=== PATIENT | male | born 1945 | race Caucasian/White ===

== ENCOUNTER → 2016-09-04 | Outpatient (CLI) | payer BC ==
[~2016-09-04] MED LIST: ADVIN25050 INH; AMLO-110 PO; ASPI-435 PO; ATOR-24 PO; CHOL100010 PO; DXY100 PO; ESCI1TAB10 PO; EZET10TA63 PO; GLC500 PO; GLIP10TA3 PO; LEVO175T3 PO; LOSA50TA54 PO; LTHSR/300 PO; LXP/10 PO; METO25TA3 PO; MULT-506 PO; OMEG10007 PO; SILD100T PO; SPRIN INH; TRAZ50TA35 PO; [UNRECOGNIZED DRUG - CODE] PO
[2016-09-04 14:55] LABS: ESTIMATED AVERAGE GLUCOSE 146 mg/dl; HA1C FLAG Normal (Normal)
[2016-09-04 15:13] LABS: ALB/GLOB RATIO 1.4 (0.9-2); ALKALINE PHOSPHATASE 106 U/L (45-117); AST/SGOT 27 U/L (15-37); BLOOD UREA NITROGEN 26 mg/dl (7-18); BUN/CREATININE RATIO 26.6 (10-20); CALCIUM 9.4 mg/dl (8.5-10.1); CARBON DIOXIDE 27 mmol/L (21-32); CHLORIDE 107 mmol/L (98-107); CREATININE 0.98 mg/dl (0.60-1.40); GLUCOSE 140 mg/dl (70-99); HDL CHOLESTEROL 32 mg/dl; POTASSIUM 4.1 mmol/L (3.5-5.1); SODIUM 139 mmol/L (136-145)
[2016-09-04 15:33] LABS: RATIO 37.4 mcg/mg (0-30.0)
[2016-09-04 15:47] LABS: ALT/SGPT 44 U/L (12-78); CHOLESTEROL 111 mg/dl (0-200); CHOLESTEROL/HDL RATIO 3.5; LDL CHOLESTEROL CALCULATED 37 mg/dl; THYROID STIMULATING HORMONE 0.711 uIu/ml (0.300-4.500); TRIGLYCERIDES 210 mg/dl (0-150); VERY LOW DENSITY LIPOPROT CALC 42 mg/dl
== END | disposition home or self-care (01) ==
LOC: C.LABBC 10:17
PROVIDERS: ATTEND Family Medicine
DX: Z11.59 Encounter for screening for other viral diseases (principal); I10 Essential (primary) hypertension; E11.9 Type 2 diabetes mellitus without complications; E03.9 Hypothyroidism, unspecified

== ENCOUNTER → 2016-10-09 | Day surgery (SDC) | payer BC ==
[2016-10-02 09:10] VITALS: Ht 174 cm; Wt 113.6 kg
[~2016-10-09] VITALS: Ht 174 cm; Wt 113.6 kg
[~2016-10-09] MED LIST changes: -ADVIN25050 INH; -DXY100 PO; -ESCI1TAB10 PO; +LIDOCAINE HCL 2% 2 ML VIAL (20MG/ML) ONE; +PROPOFOL IV EMULSION 10 MG/ML 20 ML VIAL IV ONE; +SODIUM CHLORIDE 0.9% 500ML 500 ML IV ONE; -SPRIN INH; -TRAZ50TA35 PO
--- NOTE | 2016-10-09 09:45 | Endo History and Physical ---
History & Physical Date of Service: October 09, 2016. Chief Complaint: dysphagia Referring Physician: Dr. Hoda Rasmussen History of Present Illness 70 yo CM who presents for EGD secondary to dysphagia. Past Medical History Diabetes, Other Psy. Disorders, Arthritis, Hypertension Past Surgical History Hx Cardiac Surgery: No Hx Internal Defibrillator: No Hx Pacemaker: No Hx Abdominal Surgery: No Hx of Implantable Prosthesis: No Hx Post-Op Nausea and Vomiting: No Hx Cancer Surgery: No Hx Thoracic Surgery: No Hx Orthopedic: No Hx Urinary Tract Surgery: No Family History None Social History Smoking Status: Former Smoker Hx Substance Use: No Hx Alcohol Use: Yes (4-5 BEERS/WEEK) Allergies Coded Allergies: Lisinopril (Verified Allergy, Severe, COUGH, 10/09/16) Current Medications Reported Home Medications Medications Dose Route/Sig Max Daily Dose Days Date Category Vitamin D (Cholecalciferol) 1,000 Unit Tab 1 Tab PO QAM 10/02/16 Reported Lexapro (Escitalopram Oxalate) 10 Mg Tab 1.5 Tabs PO QAM 10/02/16 Reported Toprol-Xl (Metoprolol Succinate) 25 Mg Tabcr 25 Mg PO QPM 08/31/15 Reported Cozaar (Losartan Potassium) 50 Mg Tab 50 Mg PO BID 08/31/15 Reported Norvasc (Amlodipine Besylate) 5 Mg Tab 5 Mg PO BID 08/31/15 Reported Glucotrol (Glipizide) 10 Mg Tab 10 Mg PO BID 08/31/15 Reported Lipitor (Atorvastatin Calcium) 40 Mg Tab 40 Mg PO HS 08/31/15 Reported Levothyroxine Sodium 175 Mcg Tab 175 Mcg PO QAM 08/31/15 Reported [place]-3 (Fish Oil) 1 Ea Cap 2,000 Cap PO QPM 08/03/13 Reported [place]-3 (Fish Oil) 1 Ea Cap 1,000 Cap PO QAM 08/03/13 Reported Glucosamine/Chondroitin (Glucosamine-Chondroitin) 1 Tab Tab 1 Tab PO BID 08/03/13 Reported Aspirin 81 (Aspirin) 81 Mg Tab 81 Mg PO QAM 08/03/13 Reported Viagra (Sildenafil Citrate) 100 Mg Tab 100 Mg PO UD PRN 11/12/09 Reported Multivitamin (Multivitamins) Tab 1 Tab PO QAM 11/12/09 Reported [place] Carbonate 300 Mg Cap 300 Mg PO BID 11/12/09 Reported Zetia (Ezetimibe) 10 Mg Tab 10 Mg PO QPM 11/12/09 Reported Glucophage * (Metformin HCl) 1,000 Mg Tab 1,000 Mg PO BID 11/12/09 Reported Vital Signs Weight (Kilograms): 113.64 Height (Feet): 0 Height (Inches): 68.5 Date Time Temp Pulse Resp B/P Pulse Ox O2 Delivery O2 Flow Rate FiO2 10/09/16 09:00 36.8 73 20 142/69 95 Room Air Physical Exam General Appearance: WD/WN, no apparent distress Respiratory/Chest: Auscultation: breath sounds normal Cardiovascular: Heart Auscultation: RRR Abdomen: Bowel Sounds: normal Inspection & Palpation: soft, non-distended, no tenderness, guarding & rebound Assessment and Plan Assessment: 70 yo CM who presents for EGD secondary to dysphagia. Plan: Proceed with EGD.
--- NOTE | 2016-10-09 10:04 | GI REPORT ---
Procedure Date: 10/09/2016 9:49 AM Procedure: Upper GI endoscopy Indications: Dysphagia Medicines: Monitored Anesthesia Care Complications: No immediate complications. Estimated Blood Loss: Estimated blood loss: none. Procedure: Pre-Anesthesia Assessment: - Prior to the procedure, a History and Physical was performed, and patient medications and allergies were reviewed. The patient's tolerance of previous anesthesia was also reviewed. The risks and benefits of the procedure and the sedation options and risks were discussed with the patient. All questions were answered, and informed consent was obtained. Prior Anticoagulants: The patient has taken aspirin, last dose was 1 day prior to procedure. ASA Grade Assessment: III - A patient with severe systemic disease. After reviewing the risks and benefits, the patient was deemed in satisfactory condition to undergo the procedure. After obtaining informed consent, the endoscope was passed under direct vision. Throughout the procedure, the patient's blood pressure, pulse, and oxygen saturations were monitored continuously. The scope was introduced through the mouth, and advanced to the second part of duodenum. The upper GI endoscopy was accomplished without difficulty. The patient tolerated the procedure well. Findings: LA Grade B (one or more mucosal breaks greater than 5 mm, not extending between the tops of two mucosal folds) esophagitis with no bleeding was found. Biopsies were taken with a cold forceps for histology. A small hiatus hernia was present. Localized moderate inflammation characterized by erosions was found in the gastric antrum. Biopsies were taken with a cold forceps for histology. One non-bleeding superficial duodenal ulcer with no stigmata of bleeding was found in the first part of the duodenum. The lesion was 3 mm in largest dimension. Impression: - LA Grade B reflux esophagitis. Biopsied. - Small hiatus hernia. - Gastritis. Biopsied. - One non-bleeding duodenal ulcer with no stigmata of bleeding. Recommendation: - Resume previous diet. - Use Protonix (pantoprazole) 40 mg PO daily daily. - Await pathology results. - Return to GI office as previously scheduled. Chu Martinez DO 10/09/2016 10:03:26 AM This report has been signed electronically. Note Initiated On: 10/09/2016 9:49 AM I attest to the content of the Intraoperative Record and orders documented therein, exceptions below
--- NOTE | 2016-10-09 10:06 | Discharge Instructions ---
Endoscopy Patient Instructions Date / Procedure(s) Performed October 09, 2016. EGD Allergy Information Coded Allergies: Lisinopril (Verified Allergy, Severe, COUGH, 10/09/16) Discharge Date / Findings October 09, 2016. Duodenal ulcer Gastritis s/p biopsies Hiatal hernia Reflux esophagitis Medication Instructions Stopped Medication(s): stopped Metformin Saturday,last dose ASA yesterday OK to resume all medications today as prescribed Start Pantoprazole 40mg by mouth each morning 1/2 hour prior to breakfast. Reported Home Medications Medications Dose Route/Sig Max Daily Dose Days Date Category Vitamin D (Cholecalciferol) 1,000 Unit Tab 1 Tab PO QAM 10/02/16 Reported Lexapro (Escitalopram Oxalate) 10 Mg Tab 1.5 Tabs PO QAM 10/02/16 Reported Toprol-Xl (Metoprolol Succinate) 25 Mg Tabcr 25 Mg PO QPM 08/31/15 Reported Cozaar (Losartan Potassium) 50 Mg Tab 50 Mg PO BID 08/31/15 Reported Norvasc (Amlodipine Besylate) 5 Mg Tab 5 Mg PO BID 08/31/15 Reported Glucotrol (Glipizide) 10 Mg Tab 10 Mg PO BID 08/31/15 Reported Lipitor (Atorvastatin Calcium) 40 Mg Tab 40 Mg PO HS 08/31/15 Reported Levothyroxine Sodium 175 Mcg Tab 175 Mcg PO QAM 08/31/15 Reported [place]-3 (Fish Oil) 1 Ea Cap 2,000 Cap PO QPM 08/03/13 Reported [place]-3 (Fish Oil) 1 Ea Cap 1,000 Cap PO QAM 08/03/13 Reported Glucosamine/Chondroitin (Glucosamine-Chondroitin) 1 Tab Tab 1 Tab PO BID 08/03/13 Reported Aspirin 81 (Aspirin) 81 Mg Tab 81 Mg PO QAM 08/03/13 Reported Viagra (Sildenafil Citrate) 100 Mg Tab 100 Mg PO UD PRN 11/12/09 Reported Multivitamin (Multivitamins) Tab 1 Tab PO QAM 11/12/09 Reported [place] Carbonate 300 Mg Cap 300 Mg PO BID 11/12/09 Reported Zetia (Ezetimibe) 10 Mg Tab 10 Mg PO QPM 11/12/09 Reported Glucophage * (Metformin HCl) 1,000 Mg Tab 1,000 Mg PO BID 11/12/09 Reported Provider Instructions Activity Restrictions - No exercising or heavy lifting for 24 hours. - Do not drink alcohol the day of the procedure. - Do not drive a car or operate machinery until the day after the procedure. - Do not make any important decisions or sign important papers in 24 hours after the procedure. Following Day: - Return to full activity which may include returning to work/school. Diet Start your diet with liquids and light foods (jello, soup, juice, toast). Then eat your usual diet if not nauseated. Treatment For Common After Affects For mild abdominal pain, bloating, or excessive gas: - Rest - Eat lightly - Lie on right side Follow-Up Information Follow-up with Dr. Hoda Rasmussen as scheduled Anesthesia Information What You Should Know You have had a procedure that required some medicine to reduce anxiety and discomfort. This treatment is called moderate sedation. After receiving the treatment, you may be sleepy, but you will be able to breathe on your own. The effects of the treatment may last for several hours. Follow these instructions along with Activity/Diet recommendations noted above: * Do NOT do anything where dizziness or clumsiness would be dangerous. * Rest quietly at home today, then you can be up and about tomorrow. * Have a responsible person stay with you the rest of today. * You may have had an I.V. today. If so, you may take the dressing off later today. Recommendations Call your doctor if: * Trouble breathing * Continuous vomiting for more than 24 hours * Temperature above 101 degrees * Severe abdominal pain or bloating * Pain not relieved by pain medicine ordered * There is increased drainage or redness from any incision * A large amount of rectal bleeding greater than 2-3 tablespoons. (If you had a polyp/s removed or have hemorrhoids, a small amount of blood - from the rectum is to be expected.) * You have any unanswered questions or concerns. IN THE EVENT OF A SERIOUS EMERGENCY, GO TO THE NEAREST EMERGENCY ROOM Your discharge instructions were prepared by provider Chu Martinez. Patient Instructions Signature Page Jayden Castanon Patient (or Guardian) Signature/Date: I have read and understand the instructions given to me by my caregivers. Caregiver/RN/Doctor Signature/Date: The above-named patient and/or guardian has received patient instructions on this date. + Original Patient Signature Page (only) stays with chart. Please make copy for patient.
--- NOTE | 2016-10-09 10:35 | Anesthesiology Progress Note ---
Anesthesia Post Op Note Date & Time October 09, 2016 at 10:35 Vital Signs Pain Intensity: 0 Vital Signs Past 12 Hours Date Time Temp Pulse Resp B/P Pulse Ox O2 Delivery O2 Flow Rate FiO2 10/09/16 10:21 65 20 129/64 95 Room Air 10/09/16 10:07 36.8 66 20 121/69 93 Room Air 10/09/16 09:00 36.8 73 20 142/69 95 Room Air Notes Mental Status: alert / awake / arousable, participated in evaluation Pt Amnestic to Procedure: Yes Nausea / Vomiting: adequately controlled Pain: adequately controlled Airway Patency, RR, SpO2: stable & adequate BP & HR: stable & adequate Hydration State: stable & adequate Anesthetic Complications: no major complications apparent
[2016-10-09 10:36] VITALS: BP 116/55; PULSE 70; O2SAT 95
== END | disposition home or self-care (01) ==
LOC: C.GI 08:37
PROVIDERS: ATTEND Internal Medicine
DX: R13.10 Dysphagia, unspecified (principal); K29.70 Gastritis, unspecified, without bleeding; K21.0 Gastro-esophageal reflux disease with esophagitis; K26.9 Duodenal ulcer, unspecified as acute or chronic, without hemorrhage or perforation; K44.9 Diaphragmatic hernia without obstruction or gangrene; E11.9 Type 2 diabetes mellitus without complications; M19.90 Unspecified osteoarthritis, unspecified site; I10 Essential (primary) hypertension; Z87.891 Personal history of nicotine dependence

== ENCOUNTER → 2017-01-23 | Outpatient (CLI) | payer BC ==
[~2017-01-23] MED LIST changes: -LIDOCAINE HCL 2% 2 ML VIAL (20MG/ML) ONE; -PROPOFOL IV EMULSION 10 MG/ML 20 ML VIAL IV ONE; -SODIUM CHLORIDE 0.9% 500ML 500 ML IV ONE
--- NOTE | 2017-01-23 09:40 | DIAGNOSTIC IMAGING REPORT ---
CHEST 2 VIEWS ROUTINE HISTORY: R05 [id number] Tuberculosis [id number] COMPARISON: Chest 09/19/2015. FINDINGS: No pleural effusions. No pneumothorax. The heart is stable in size. The right lung is clear. 3 cm focal stable right lower lobe nodular density consistent with a nipple shadow. Progressive cluster of nodular densities within the base of the left lower lobe. One of these represents a nipple shadow. However, the remaining nodular densities are indeterminate. IMPRESSION: Progressive cluster of nodular densities within the base of the left lower lobe. Recommend follow-up shallow oblique views of the chest to exclude a developing opacity/nodule. Electronically signed by: Keven Potts M.D. 01/23/2017 9:39 AM Dictated Date/Time: 01/23/2017 9:34 AM
[2017-01-23 10:45] LABS: BASO % 0.6 %; BASO ABS # 0.06 K/uL (0-0.2); COMPLETE YES; EOS % 4.9 %; HEMATOCRIT 42.2 % (42-52); IG% 0.2 %; LYMPH ABS # 2.47 K/uL (1.2-3.4); MEAN CELL VOLUME 92.3 fL (80-100); MEAN CORPUSCULAR HGB CONC 32.5 g/dl (32-36); MEAN PLATELET VOLUME 10.8 fL (7.4-10.4); MONO % 6.8 %; NEUT % 61.5 %; PLATELET COUNT 250 K/uL (130-400); RED BLOOD COUNT 4.57 M/uL (4.7-6.1); WHITE BLOOD COUNT 9.51 K/uL (4.8-10.8)
[2017-01-23 11:33] LABS: ESTIMATED AVERAGE GLUCOSE 143 mg/dl; HA1C FLAG Normal (Normal)
--- NOTE | 2017-01-23 12:03 | DIAGNOSTIC IMAGING REPORT ---
PA and oblique views of the chest (3 views) CLINICAL HISTORY: R93.8 Abnormal finding on [id number] COMPARISON STUDY: 01/23/2017 FINDINGS: The heart is mildly enlarged. There is no focal pulmonary consolidation. This study fails to confirm the presence of a left basilar pulmonary mass. IMPRESSION: No active disease in the chest. Oblique views of the chest fail to confirm the presence of a left lower lobe pulmonary mass. Electronically signed by: Carlos A Elam M.D. 01/23/2017 12:02 PM Dictated Date/Time: 01/23/2017 12:01 PM
[2017-01-23 13:48] LABS: ALT/SGPT 51 U/L (12-78); BLOOD UREA NITROGEN 18 mg/dl (7-18); CALCIUM 9.7 mg/dl (8.5-10.1); CARBON DIOXIDE 28 mmol/L (21-32); CHLORIDE 104 mmol/L (98-107); CHOLESTEROL 121 mg/dl (0-200); CREATININE 0.97 mg/dl (0.60-1.40); GLUCOSE 143 mg/dl (70-99); POTASSIUM 4.1 mmol/L (3.5-5.1); SODIUM 138 mmol/L (136-145)
[2017-01-23 13:58] LABS: ALB/GLOB RATIO 1.1 (0.9-2); ALKALINE PHOSPHATASE 106 U/L (45-117); AST/SGOT 36 U/L (15-37); CHOLESTEROL/HDL RATIO 3.5; HDL CHOLESTEROL 35 mg/dl; LDL CHOLESTEROL CALCULATED 44 mg/dl; THYROID STIMULATING HORMONE 0.251 uIu/ml (0.300-4.500); TRIGLYCERIDES 209 mg/dl (0-150); VERY LOW DENSITY LIPOPROT CALC 42 mg/dl
[2017-01-23 14:02] LABS: RATIO 33.8 mcg/mg (0-30.0)
== END | disposition home or self-care (01) ==
LOC: C.RADBC 08:53
PROVIDERS: ATTEND Nurse Practitioner Family
DX: R93.8 Abnormal findings on diagnostic imaging of other specified body structures (principal); R05 Cough; Z11.1 Encounter for screening for respiratory tuberculosis; E11.9 Type 2 diabetes mellitus without complications; I10 Essential (primary) hypertension; E03.9 Hypothyroidism, unspecified; E78.1 Pure hyperglyceridemia

== ENCOUNTER → 2017-03-29 | Outpatient (CLI) | payer BC ==
[2017-03-29 17:53] LABS: LYME DISEASE AB IGG POS (NEG); LYME DISEASE AB IGM POS (NEG)
== END | disposition home or self-care (01) ==
LOC: C.LABBC 13:26
PROVIDERS: ATTEND Nurse Practitioner Family
DX: M76.62 Achilles tendinitis, left leg (principal)

== ENCOUNTER → 2017-04-12 | Outpatient (CLI) | payer BC | END | disposition home or self-care (01) | LOC: C.RDSM 12:54 | PROVIDERS: ATTEND Physical Medicine & Rehabilitation Sports Medicine | DX: M25.572 Pain in left ankle and joints of left foot (principal) ==

== ENCOUNTER → 2017-04-19 | Outpatient (CLI) | payer BC ==
--- NOTE | 2017-04-19 10:59 | DIAGNOSTIC IMAGING REPORT ---
MRI OF THE LEFT ANKLE NO CONTRAST CLINICAL HISTORY: Left ankle/hindfoot pain. Achilles tendinitis. COMPARISON STUDY: Conventional radiographic study of the left ankle dated 04/12/2017 FINDINGS: Imaging was performed in the axial, sagittal, and coronal planes. There are no areas of marrow edema to indicate occult fracture or bone bruise. There is Achilles insertional and plantar calcaneal spurring. There is no evidence of ligamentous disruption. There are no findings to indicate plantar fasciitis. There is fusiform enlargement of the Achilles tendon with increased T1 and T2 signal. The findings are consistent with extensive mucoid degeneration. IMPRESSION: 1. Extensive mucoid degeneration Achilles tendon as evidenced by fusiform enlargement and increased T1 and T2 signal. 2. No evidence of occult fracture or bone bruise 3. No evidence of ligamentous disruption Electronically signed by: Carlos A Elam M.D. 04/19/2017 10:58 AM Dictated Date/Time: 04/19/2017 10:51 AM
== END | disposition home or self-care (01) ==
LOC: C.MRI 09:26
PROVIDERS: ATTEND Physical Medicine & Rehabilitation Sports Medicine
DX: M25.572 Pain in left ankle and joints of left foot (principal); M76.62 Achilles tendinitis, left leg

== ENCOUNTER → 2017-09-10 | Outpatient (CLI) | payer BC ==
[2017-09-10 13:28] LABS: BASO % 0.6 %; BASO ABS # 0.06 K/uL (0-0.2); EOS % 7.2 %; EOS ABS # 0.73 K/uL (0-0.5); HEMATOCRIT 43.2 % (42-52); HEMOGLOBIN 14.1 g/dL (14.0-18.0); IG# 0.03 K/uL (0.00-0.02); LYMPH % 33.8 %; LYMPH ABS # 3.42 K/uL (1.2-3.4); MEAN CELL VOLUME 92.5 fL (80-100); MEAN CORPUSCULAR HEMOGLOBIN 30.2 pg (25-34); MEAN CORPUSCULAR HGB CONC 32.6 g/dl (32-36); MEAN PLATELET VOLUME 10.8 fL (7.4-10.4); MONO % 6.9 %; NEUT % 51.2 %; NEUT ABS # 5.19 K/uL (1.4-6.5); PLATELET COUNT 246 K/uL (130-400); RED CELL DISTRIBUTION WIDTH CV 13.8 % (11.5-14.5); RED CELL DISTRIBUTION WIDTH SD 46.4 fL (36.4-46.3); WHITE BLOOD COUNT 10.13 K/uL (4.8-10.8)
[2017-09-10 13:52] LABS: HEMOGLOBIN A1C 6.8 % (4.5-5.6)
[2017-09-10 14:08] LABS: CREATININE RANDOM URINE 87.4 mg/dl
== END | disposition home or self-care (01) ==
LOC: C.LABBC 09:28
PROVIDERS: ATTEND Nurse Practitioner Family
DX: F30.9 Manic episode, unspecified (principal); E78.1 Pure hyperglyceridemia; E11.9 Type 2 diabetes mellitus without complications; I10 Essential (primary) hypertension